=== PATIENT | male | born 1955 | race Caucasian/White ===

== ENCOUNTER 2021-04-26 09:42 | Emergency (ER) | payer OTHER ==
[2021-04-26] MEDS ORDERED: Lidocaine 1% 20 ML MDV ONE (10:05)
[2021-04-26] MEDS ORDERED: Boostrix 0.5 ML (Tdap) VIAL ONE ×2 (10:06→10:15)
[2021-04-26] MEDS ORDERED: Clindamycin 150 MG CAP ONE (11:06)
[2021-04-26] MEDS ORDERED: HYDROcodone/Acetaminophen 10/325 mg Tablet ONE (11:47)
== END 2021-04-26 12:04 | disposition home or self-care (01) ==
LOC: MADERS 09:42
DX: S62.636B Displaced fracture of distal phalanx of right little finger, initial encounter for open fracture (principal); Z85.828 Personal history of other malignant neoplasm of skin; W22.8XXA Striking against or struck by other objects, initial encounter
CPT/HCPCS: 26755; 90471; 90715